=== PATIENT | female | born 1960 | race Caucasian/White ===

== ENCOUNTER → 2020-06-08 | Outpatient (CLI) | payer MEDICARE, BC ==
--- NOTE | 2020-06-09 13:09 | XR ---
EXAMINATION TYPE: XR chest 2V DATE OF EXAM: 06/08/2020 COMPARISON: None INDICATION: Chest pain TECHNIQUE: Frontal and lateral views of the chest are obtained. FINDINGS: The heart size is normal. The pulmonary vasculature is normal. The lungs are clear. Osseous structures as visualized appear normal. Retrosternal space appears norm al. IMPRESSION: 1. No acute pulmonary process.
== END ==
LOC: RADXRYALE 16:36
PROVIDERS: ATTEND Internal Medicine
DX: R07.9 Chest pain, unspecified (principal)
CPT/HCPCS: 71046

== ENCOUNTER → 2020-06-08 | Outpatient (CLI) | payer MEDICARE, BC ==
[2020-06-08 11:07] VITALS: BP 111/78; PULSE 95; RESP 18; TEMP 98.6
--- NOTE | 2020-06-08 15:37 | P.PAINCN ---
History of Present Illness - Reason for Consult Consult date: 06/08/20 Neck pain - Chief Complaint Neck pain - History of Present Illness is a 59-year-old pleasant female came to the [facility] pain clinic for chronic neck pain, and radiating to left upper extremity. Patient has ongoing pain for many years. Recently her pain is getting worse. She had cervical spine MRI done which showed C6-C7 moderate to severe neural foraminal stenosis, and C5-C6 moderate neural foraminal narrowing. Sometimes patient experiencing tingling and numbness in her fingers and not able to perform her activities. Sometimes she has a difficulty of dropping things. She rated her pain 6-7 out of 10 in severity. Which may very sometimes 5-9 out of 10 in severity. She describes her pain is aching, throbbing, burning, tingling, numbness. Activities making her pain worse sometime. Pain medications, and heating pad helping to some extent. Some days difficult to get good sleep secondary to pain. Denied any red flag symptoms at this time. Denied any bowel or bladder problems. Denied any neck injuries/recent history of fall. Patient using cane for walking support. Review of Systems All systems: negative Constitutional: Denies chills, Denies fever Eyes: denies blurred vision, denies pain Ears, nose, mouth and throat: Denies headache, Denies sore throat Cardiovascular: Denies chest pain, Denies shortness of breath Respiratory: Denies cough Gastrointestinal: Denies abdominal pain, Denies diarrhea, Denies nausea, Denies vomiting Genitourinary: Denies dysuria, Denies hematuria Musculoskeletal: Denies myalgias Integumentary: Denies pruritus, Denies rash Neurological: Denies numbness, Denies weakness Psychiatric: Denies anxiety, Denies depression Endocrine: Denies fatigue, Denies weight change Past Medical History Past Medical History: Osteoarthritis (OA), Sleep Apnea/CPAP/BIPAP Additional Past Medical History / Comment(s): neck pain, states has "deformity" of hands, wears a brace History of Any Multi-Drug Resistant Organisms: None Reported Past Surgical History: Back Surgery, Hysterectomy, Joint Replacement, Orthopedic Surgery Additional Past Surgical History / Comment(s): total left knee, dental implants, back L5-L6 has cage, rt shoulder rotator cuff, marta feet bunion sx, states plate and screws rt foot. Past Anesthesia/Blood Transfusion Reactions: No Reported Reaction Past Psychological History: No Psychological Hx Reported Smoking Status: Former smoker Past Alcohol Use History: None Reported Past Drug Use History: None Reported Medications and Allergies Home Medications Medication Instructions Recorded Confirmed Type Ascorbic Acid [Vitamin C] 1,000 mg PO DAILY 06/04/20 06/04/20 History Cholecalciferol (Vitamin D3) 125 mcg PO DAILY 06/04/20 06/04/20 History [Vitamin D3 (5000 Iu)] Cyclobenzaprine [Flexeril] 10 mg PO HS 06/04/20 06/04/20 History Ibuprofen 200 mg PO Q6H PRN 06/04/20 06/04/20 History Multivit-Min/Iron/Folic/Lutein 1 each PO DAILY 06/04/20 06/04/20 History [Centrum Silver Women Tablet] Naproxen Sodium [Aleve] 220 mg PO DIRECTED PRN 06/04/20 06/04/20 History Tumeric 1 tab PO DAILY 06/04/20 History Zinc 50 mg PO DAILY 06/04/20 06/04/20 History Allergies Allergy/AdvReac Type Severity Reaction Status Date / Time No Known Allergies Allergy Verified 06/04/20 13:37 Physical Exam Vitals: Vital Signs Temp Pulse Resp BP Pulse Ox 06/08/20 11:02 98.6 F 95 18 111/78 96 - Constitutional General appearance: no acute distress - EENT Eyes: EOMI - Neck Neck: no lymphadenopathy - Respiratory Respiratory: negative: CTA - Cardiovascular Rhythm: regular - Gastrointestinal General gastrointestinal: soft - Neurologic No noticeable focal neurological deficits - Musculoskeletal Noticeable leg length discrepancy Musculoskeletal: strength equal bilaterally - Psychiatric Psychiatric: A&O x's 3, appropriate affect, intact judgment & insight (Cervical paraspinal muscle tenderness positive, cervical facet load positive. 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 Diagnoses, prognoses, and multiple treatment options including but not limited to physical therapy, interventional therapies, adjunct medical therapies, and surgical options were discussed with the patient and all questions were answered to the patients satisfaction. 2. Treatment plan agreement: Patient was discussed regarding the medication side effects, and complications associated medications. 3. The patient was counseled on importance of regular exercise in controlling chronic pain as well as in terms of overall well-being. Patient counseled regarding the importance of regular exercise, and minimizing the intake of carbohydrates, and process foods which may help in decreasing the inflammation, and helps overall well-being. 4. Consultations: Physical therapy 5. Investigations: MAPS- appropriate , and urine drug test- not done. 6. Diagnostic studies: EMG 7. Interventional procedures: Cervical C6-C7 epidural steroid injection 8. Medications: None from pain clinic 9. Morphine milligram equivalent (MME) doses: 0 from the pain clinic. 10. Durable Medical Equipment (DME) : TENS units. 11. Disposition: Scheduled for follow-up in 4 weeks duration. I have spent greater than 30 minutes with this patient. Including but not limited to: [id number] time, on physical examination, electronic medical record review, counseling, and documentation The QRS measure charge sheet done in separate paper note. Time with Patient: Greater than 30 PQRS Measure Charge Sheet PQRS Narrative: Blood Pressure 111/78 Pain Intensity [Neck] 1 Scale Used Numeric (1 - 10) Hx Alcohol Use (MH) Yes: 4-6 glasses of wine a week. Home Medications: Ambulatory Orders Ascorbic Acid [Vitamin C] 1,000 mg PO DAILY 06/04/20 Cholecalciferol (Vitamin D3) [Vitamin D3 (5000 Iu)] 125 mcg PO DAILY 06/04/20 Cyclobenzaprine [Flexeril] 10 mg PO HS 06/04/20 Ibuprofen 200 mg PO Q6H PRN 06/04/20 Multivit-Min/Iron/Folic/Lutein [Centrum Silver Women Tablet] 1 each PO DAILY 06/04/20 Naproxen Sodium [Aleve] 220 mg PO DIRECTED PRN 06/04/20 Tumeric 1 tab PO DAILY 06/04/20 Zinc 50 mg PO DAILY 06/04/20
== END ==
LOC: PNWHC3 10:48
DX: M47.22 Other spondylosis with radiculopathy, cervical region (principal); M48.02 Spinal stenosis, cervical region; G89.4 Chronic pain syndrome; M79.18 Myalgia, other site; M19.90 Unspecified osteoarthritis, unspecified site
CPT/HCPCS: 99211

== ENCOUNTER 2020-07-07 13:33 | Day surgery (SDC) | payer MEDICARE, BC ==
[2020-06-24 15:55] VITALS: BMI 33.3
[2020-07-07] MEDS ORDERED: LACTATED RINGERS 1,000 ML IV SCH (13:45)
[2020-07-07 13:49] VITALS: RESP 18; TEMP 98
[2020-07-07] MEDS ORDERED: SODIUM CHLORIDE 0.9% (PF) 10 ML VIAL ONE (13:52)
[2020-07-07] MEDS ORDERED: IOPAMIDOL M200 10 ML VIAL ONE (13:52)
[2020-07-07] MEDS ORDERED: DEXAMETHASONE SOD PHOSPHATE 10 MG/ML 1 ML VIAL ONE (13:52)
--- NOTE | 2020-07-07 14:11 | P.PCN ---
Date of Procedure: 07/07/20 Description of Procedure: Pre- and Post-operative Diagnosis: Cervical radiculopathy Procedure done: Left-sided C6-C7 Inter-Laminar Cervical Epidural Steroid Injection under biplanar fluoroscopy #2. Surgeon: Consuelo Mercer Anesthesia: Local: 1% Lidocaine, IV sedation : None. Complications: None. Estimated blood loss: None Specimens removed: None Fluoroscopic image: saved to electronic medical records. Indications for Procedure: The patient has been suffering from neck pain and pain some times radiating to the upper extremity . Inadequate pain control with pharmacologic regimen. An inter-laminar approach cervical epidural steroid injection was scheduled for the patient. Procedure and Findings: The patient was seen and examined in the holding area. The written informed consent was obtained after explaining the risks, benefits, alternatives of the procedure to the patient. The patient was brought to the procedure room and was placed in the prone position on the operating table. A pillow was placed under the upper chest. Standard anesthesia monitoring was done through out the procedure. Timeout was completed. The skin preparation was done with ChloraPrep 1 and draping was done in usual sterile fashion. Sterile technique was observed throughout the procedure. Under fluoroscopic guidance, C6-C7 inter-laminar space was identified. 3 ml of 1% Lidocaine was injected with a 25 gauge needle to achieve adequate local anesthesia of the skin and subcutaneous tissue. A 20 gauge, 3.5 inch Tuohy type epidural needle was placed and gradually advanced up to the epidural space using loss of resistance technique and fluoroscopic guidance. Lateral, oblique fluoroscopic views confirm the needle position. No paresthesia was noted. A negative aspiration was confirmed and then 1 ml of Isovue-200 was injected. A good dye spread was seen in the epidural space and it was negative for any intrathecal, intraneural or intravascular spread. A total of 5 ml solution containing 20 mg Dexamethasone, and 4 ml preservative-free Normal Saline was injected slowly with intermittent aspiration. The needle was removed intact, area was cleaned and bandage was applied. Disposition : The patient tolerated the procedure very well. The patient was transferred to the recovery room and remained stable until discharged home. The patient was given detailed discharge instructions for bleeding, infection, increased pain at the injection site, and was advised to seek immediate medical attention should significant side effects develop. The patient will be followed up with our Pain Clinic within 4 weeks for follow-up visit.
[2020-07-07 14:28] VITALS: BP 109/76; PULSE 70
--- NOTE | 2020-07-07 16:23 | FL ---
EXAMINATION TYPE: FL guided pain mgmt statistic DATE OF EXAM: 07/07/2020 FLUOROSCOPY Fluoroscopy time of 13 seconds was used during cervical epidural injection. 3 image/s document/s the procedure.
== END 2020-07-07 14:38 | disposition home or self-care (01) ==
LOC: ORPAIN 13:33
DX: M54.12 Radiculopathy, cervical region (principal); Z90.710 Acquired absence of both cervix and uterus
CPT/HCPCS: 62321; J1100; Q9966

== ENCOUNTER 2021-04-15 11:05 | Day surgery (SDC) | payer MEDICARE, BC ==
[2021-04-12 10:35] VITALS: BMI 33.3
[~2021-04-15 11:05] MED LIST: LACTATED RINGERS 1,000 ML IV SCH; LIDOCAINE 1% (10MG/ML) FOR IV START INTRADERMA PRN
[2021-04-15 11:53] VITALS: TEMP 97.9
[2021-04-15] MEDS ORDERED: PROPOFOL 10 MG/ML 20 ML VIAL IV ONE (12:06)
[2021-04-15] MEDS ORDERED: LIDOCAINE 1% INJ 10MG/ML (20 ML MDV) ONE (12:06)
--- NOTE | 2021-04-15 12:28 | P.OP ---
Date of Procedure: 04/15/21 Preoperative Diagnosis: History of colon polyps Postoperative Diagnosis: Left colon polyp Diverticulosis Procedure(s) Performed: Colonoscopy Anesthesia: MAC Surgeon: Leonidas Disla Pathology: other (Colon polyp) Condition: stable Disposition: PACU Description of Procedure: The patient's placed on the endoscopy table in the lateral position. She received IV sedation. Digital rectal exam was performed which revealed no abnormalities. The flexible colonoscope was then placed patient anus and passed throughout the entire colon. The ileocecal valve was visually is. The cecum appeared normal. The cecal normal. The transverse colon appeared normal. In the descending colon there is a small polyp seen this removed with a forcep. A few scattered diverticuli in the left colon. The scope was brought back the sigmoid colon a few scattered diverticuli were seen. Scope was brought back the rectum and this appeared normal. Scope was withdrawn for patient.
[2021-04-15 12:48] VITALS: BP 113/71; PULSE 72; RESP 20
== END 2021-04-15 13:25 | disposition home or self-care (01) ==
LOC: ORWHC2ENDO 11:05
PROVIDERS: ATTEND Surgery
DX: Z12.11 Encounter for screening for malignant neoplasm of colon (principal); Z86.010 Personal history of colon polyps; K63.5 Polyp of colon
CPT/HCPCS: 88305; 45380; J2001; J2704

== ENCOUNTER → 2022-06-22 | Outpatient (CLI) | payer MEDICARE ==
--- NOTE | 2022-06-22 15:29 | BD ---
EXAMINATION TYPE: Axial Bone Density DATE OF EXAM: 06/22/2022 CLINICAL HISTORY: 61 years old Female. ICD-10 CODE: Z78.0 MENOPAUSAL STATE Height: 5 ft 5 in Weight: 251 FRAX RISK QUESTIONS: Alcohol (3 or more units per day): no Family History (Parent hip fracture): no Glucocorticoids (More than 3mos): no (Ex: prednisone, prednisolone, methylprednisolone, dexamethasone, and hydrocortisone). History of Fracture in Adulthood: no Secondary Osteoporosis: 1. Type 1 Diabetes: no 2. Hyperthyroidism: no 3. Menopause before 45: no 4. Malnutrition: no 5. Chronic liver disease: no Rheumatoid Arthritis: no Current Tobacco Use: no RISK FACTORS HISTORY OF: Surgery to Spine/Hip(right/left)/Wrist (right/left): lumbar,marta wrist surg When: 2018 Family History of Osteoporosis: no Active: yes Diet low in dairy products/other sources of calcium: no Postmenopausal woman: yes Take estrogen and/or progesterone medications: no Lost more than 2 inches in height since high school: no Frequent falls: yes Poor Health: good Hyperparathyroidism: no Adrenal Insufficiency: no MEDICATIONS: How Long: Additional Medications: simvastatan, Additional History: EXAM MEASUREMENTS: Bone mineral density about the R hip (g/cm2): 0.711 Bone mineral density about the L hip (g/cm2): 0.808 T Score values are as follows: -----R Neck: -2.4 -----L Neck: -1.7 -----R Total: -0.7 -----L Total: 0.1 Z Score values are as follows: -----R Neck: -1.8 -----L Neck: -1.1 -----R Total: -0.6 -----L Total: 0.3 baseline FRAX%s: The graph provided illustrates a 10.0 % chance for a major osteoporotic fx and a 1.6 % chance for the hips probability for fx in 10 years time. IMPRESSION: Osteopenia (T Score between -2.5 and -1). There is slightly increased risk of fracture and the patient may be considered for treatment. Re-Screen 2-5 years. NOTE: T-SCORE=SD OF THE YOUNG ADULT MEAN.
== END | disposition home or self-care (01) ==
LOC: RADBDWWP 10:34
PROVIDERS: ATTEND Family Medicine
DX: M85.89 Other specified disorders of bone density and structure, multiple sites (principal); Z78.0 Asymptomatic menopausal state
CPT/HCPCS: 77080

== ENCOUNTER 2023-07-20 07:53 | Day surgery (SDC) | payer MEDICARE ==
[2023-07-18 15:00] VITALS: BMI 39.9
[2023-07-20] MEDS: LACTATED RINGERS 1,000 ML IV ONE ×2 (08:45→09:07)
[2023-07-20] MEDS ORDERED: LACTATED RINGERS 1,000 ML IV SCH (08:55)
[2023-07-20] MEDS ORDERED: PROPOFOL 10 MG/ML 20 ML VIAL IV ONE (09:08)
[2023-07-20] MEDS ORDERED: LIDOCAINE 1% INJ 10MG/ML (20 ML MDV) ONE (09:08)
--- NOTE | 2023-07-20 09:18 | P.GSHP ---
History of Present Illness H&P Date: 07/20/23 Chief Complaint: history of colon polyps this a 62-year-old female who presents today for colonoscopy. Patient's. History of colon polyps. Past Medical History Past Medical History: Osteoarthritis (OA), Sleep Apnea/CPAP/BIPAP Additional Past Medical History / Comment(s): neck and back pain, Silvestre Syndrome ,uses cpap History of Any Multi-Drug Resistant Organisms: None Reported Past Surgical History: Back Surgery, Hysterectomy, Joint Replacement, Orthopedic Surgery Additional Past Surgical History / Comment(s): total left knee, back L5-L6 has cage, rt shoulder rotator cuff, marta bunion sx, states plate and screws rt foot, marta carp tunnel surg., colonoscopy Past Anesthesia/Blood Transfusion Reactions: No Reported Reaction Additional Past Anesthesia/Blood Transfusion Reaction / Comment(s): no blood transfusion Smoking Status: Former smoker - Past Family History Mother Family Medical History: Cancer Additional Family Medical History / Comment(s): breast Father Family Medical History: Cancer Additional Family Medical History / Comment(s): prostate colon Brother(s) Additional Family Medical History / Comment(s): 7 out of 9 siblings have cancer sister x2 brother breast cancer, throat cancer, uterine cancer Medications and Allergies Home Medications Medication Instructions Recorded Confirmed Type Cholecalciferol (Vitamin D3) 125 mcg PO DAILY 06/04/20 07/20/23 History [Vitamin D3 (5000 Iu)] Multivit-Min/Iron/Folic/Lutein 1 each PO DAILY 06/04/20 07/20/23 History [Centrum Silver Women Tablet] Simvastatin [Zocor] 20 mg PO HS 03/02/21 07/20/23 History Turmeric (Unknown Dose) 1 tab PO DAILY 03/02/21 07/20/23 History Ubidecarenone [Co Q-10] 100 mg PO HS 04/12/21 07/20/23 History Allergies Allergy/AdvReac Type Severity Reaction Status Date / Time No Known Allergies Allergy Verified 07/20/23 08:55 Surgical - Exam Vital Signs Temp Pulse Resp BP Pulse Ox 97.8 F 87 16 103/73 95 07/20/23 08:56 07/20/23 08:56 07/20/23 08:56 07/20/23 08:56 07/20/23 08:56 - General well developed, well nourished, no distress - Eyes PERRL - ENT normal pinna - Neck no masses - Respiratory normal expansion - Cardiovascular Rhythm: regular - Abdomen Abdomen: soft, non tender Assessment and Plan Assessment: history of colon polyps. We'll perform colonoscopy.
[2023-07-20 09:26] VITALS: TEMP 97.8
--- NOTE | 2023-07-20 09:33 | P.OP ---
Date of Procedure: 07/20/23 Preoperative Diagnosis: history: Polyps Postoperative Diagnosis: mild diverticulosis Procedure(s) Performed: colonoscopy Anesthesia: MAC Surgeon: Leonidas Disla Pathology: none sent Condition: stable Disposition: PACU Description of Procedure: the patient's placed on the endoscopy table in the lateral position. she received IV sedation. Digital rectal exam was performed. This revealed no abnormalities. Flexible colonoscope was then placed patient anus and passed throughout the entire colon. The ileocecal valve was visualized. The cecum, ascending and transverse colon appeared normal. In the descending and sigmoid colon there was mild diverticular changes. Scope was then brought back the r ectum and this appeared normal. Scope withdrawn for patient.
[2023-07-20 10:12] VITALS: BP 94/68; PULSE 78; RESP 18
== END 2023-07-20 10:41 | disposition home or self-care (01) ==
LOC: ORWHC2ENDO 07:53
PROVIDERS: ATTEND Surgery
DX: Z12.11 Encounter for screening for malignant neoplasm of colon (principal); K57.30 Diverticulosis of large intestine without perforation or abscess without bleeding; G47.33 Obstructive sleep apnea (adult) (pediatric); E78.5 Hyperlipidemia, unspecified; M19.90 Unspecified osteoarthritis, unspecified site; Z87.891 Personal history of nicotine dependence; Z86.010 Personal history of colon polyps; Z90.710 Acquired absence of both cervix and uterus; Z79.899 Other long term (current) drug therapy
CPT/HCPCS: J2001; J2704; G0105